=== PATIENT | female | born 1990 | race Caucasian/White ===

== ENCOUNTER 2019-03-01 10:06 | Emergency (ER) | payer BC ==
[2019-03-01 10:31] VITALS: BP 137/95
--- NOTE | 2019-03-01 10:36 | EDM.PDOC ---
ED HPI GENERAL MEDICAL PROBLEM - General Chief Complaint: Respiratory Problem Stated Complaint: COUGH CONGESTION SORE THROAT Time Seen by Provider: 03/01/19 10:28 Source of Information: Reports: Patient History Limitations: Reports: No Limitations - History of Present Illness INITIAL COMMENTS - FREE TEXT/NARRATIVE: The patient presents with a cough, congestion, runny nose and sinus pressure. This has been going on for about a week. She has a history of asthma and just moved here and she did not bring her inhaler. She is short of breath at times and she feels like she is wheezing. She just moved into a place and found some mold. She has no abdominal pain, nausea or vomiting. Onset: Gradual Duration: Week(s): Location: Reports: Face, Other (sinus pressure) Quality: Reports: Ache Severity: Mild Improves with: Reports: None Worsens with: Reports: None Associated Symptoms: Reports: Cough, cough w sputum, Fever/Chills. Denies: Headaches, Nausea/Vomiting Face/Facial Pain Score (Numeric/FACES): 4 - Related Data Allergies Allergy/AdvReac Type Severity Reaction Status Date / Time adhesive Allergy Rash Verified 03/01/19 10:24 morphine Allergy Agitation Verified 03/01/19 10:24 Home Meds: Home Meds Acetaminophen [Tylenol Extra Strength] 1 tab PO DAILY 09/06/16 [History] Albuterol [Proventil HFA] 2 puff INH Q4H PRN #1 inhaler 03/01/19 [Rx] Azithromycin [Zithromax] 250 mg PO DAILY #6 tab 03/01/19 [Rx] Estradiol/Levonorgestrel [Climara Pro] 1 each .XX WEEKLY 03/01/19 [History] Past Medical History HEENT History: Reports: None Cardiovascular History: Reports: None Respiratory History: Reports: None Gastrointestinal History: Reports: None Genitourinary History: Reports: Renal Calculus [employer]GER TESTER History: Reports: Endometriosis, Musculoskeletal History: Reports: Fracture, Other (See Below) Other Musculoskeletal History: R ankle reconstructionn R knee patella realignment, R shoulder reconstruction Neurological History: Reports: None Psychiatric History: Reports: None Endocrine/Metabolic History: Reports: None Hematologic History: Reports: None Immunologic History: Reports: None Oncologic (Cancer) History: Reports: None Other Dermatologic History: plastic surgery on hole in R hip - Infectious Disease History Infectious Disease History: Reports: None - Past Surgical History HEENT Surgical History: Reports: Adenoidectomy, Tonsillectomy, Other (See Below) Female Surgical History: Reports: Section, Endometrial Ablation, Other (See Below) Social & Family History - Family History Family Medical History: Noncontributory - Caffeine Use Caffeine Use: Reports: Soda ED ROS GENERAL - Review of Systems Review Of Systems: See Below Constitutional: Reports: Fever, Chills HEENT: Reports: Other (congestion and runny nose) Respiratory: Reports: Shortness of Breath, Cough Cardiovascular: Reports: No Symptoms Endocrine: Reports: No Symptoms GI/Abdominal: Reports: No Symptoms : Reports: No Symptoms Musculoskeletal: Reports: No Symptoms ED EXAM, GENERAL - Physical Exam Exam: See Below Exam Limited By: No Limitations General Appearance: Alert, No Apparent Distress Ears: Normal External Exam Nose: Normal Inspection Head: Atraumatic, Normocephalic Neck: Normal Inspection, Supple, Non-Tender Respiratory/Chest: No Respiratory Distress, Lungs Clear, Normal Breath Sounds Cardiovascular: Regular Rate, Rhythm, No Edema, No Murmur GI/Abdominal: Soft, Non-Tender, No Organomegaly, No Mass Back Exam: Normal Inspection Extremities: Normal Inspection Course - Vital Signs Last Recorded V/S: Last Vital Signs Temp 97.5 F 03/01/19 10:29 Pulse 79 03/01/19 10:29 Resp 18 03/01/19 10:29 BP 137/95 H 03/01/19 10:29 Pulse Ox 98 03/01/19 10:29 Departure - Departure Time of Disposition: 11:00 Disposition: Home, Self-Care 01 Condition: Good Clinical Impression: Bronchitis Sinusitis Qualifiers: Sinusitis location: frontal Chronicity: acute Recurrence: non-recurrent Qualified Code(s): J01.10 - Acute frontal sinusitis, unspecified - Discharge Information *PRESCRIPTION DRUG MONITORING PROGRAM REVIEWED*: No *COPY OF PRESCRIPTION DRUG MONITORING REPORT IN PATIENT POLLY: No Prescriptions: Albuterol [Proventil HFA] 2 puff INH Q4H PRN #1 inhaler PRN Reason: Shortness Of Breath Azithromycin [Zithromax] 250 mg PO DAILY #6 tab Referrals: PCP,Not In Area [Primary Care Provider] - Forms: ED Department Discharge Additional Instructions: Take the zithromax 2 pills on day 1 and 1 pill on day 2 through 5. Use the inhaler 2 puffs every 6 hours as needed for wheezing or shortness of breath. Please return if you are worse.
== END 2019-03-01 11:21 | disposition home or self-care (01) ==
LOC: JD.ED 10:06
DX: J01.10 Acute frontal sinusitis, unspecified (principal); J40 Bronchitis, not specified as acute or chronic; Z88.5 Allergy status to narcotic agent; Z79.899 Other long term (current) drug therapy
CPT/HCPCS: 99283